=== PATIENT | male | born 1975 | race American Indian/Alaskan Native ===

== ENCOUNTER 2018-02-15 17:16 | Observation (INO) | payer SELFPAY ==
[2018-02-15 17:59] LABS: EOS # 0.1 K/uL (0.0-0.7); EOS % 2.9 % (0.0-4.0); HEMOGLOBIN 14.3 g/dL (12.0-18.0); LYMPH % 40.9 % (20.0-40.0); MEAN CELL VOLUME 80.9 fl (80.0-94.0); MEAN CORPUSCULAR HGB CONC 33.3 g/dL (33.0-37.0); MEAN PLATELET VOLUME 8.8 fl (7.2-11.7); MONO # 0.3 K/uL (0.0-0.8); MONO % 6.7 % (0.0-10.0); NEUT # 2.3 K/uL (1.8-7.0); NEUT % 48.5 % (50.0-75.0); RBC 5.31 Mil/uL (4.40-5.90); RED CELL DISTRIBUTION WIDTH 14.2 % (11.5-14.5); WHITE BLOOD COUNT 4.8 K/uL (4.8-10.8)
--- NOTE | 2018-02-15 18:04 | ED PDOC ---
HPI: Chest Pain Time Seen by Provider: 02/15/18 17:30 Chief Complaint (Nursing): Chest Pain Chief Complaint (Provider): Chest Pain History Per: Patient History/Exam Limitations: no limitations Onset/Duration Of Symptoms: Hrs (x1) Current Symptoms Are (Timing): Gone Now Additional History Per: EMS Additional Complaint(s): 42 year old male presents to the ED via EMS for evaluation after having right and then left sided non radiating chest pain one hour prior to arrival. Per EMS , patient was given aspirin and nitroglycerin. He states that he found it difficult to breath when the chest pain began, and was experiencing hot flashes. Currently, patient denies chest pain and shortness of breath, but does note that after the nitroglycerin, he developed a headache. PMD: none provided Past Medical History Reviewed: Historical Data, Nursing Documentation, Vital Signs Vital Signs: Last Vital Signs Temp 98.5 F 02/16/18 16:01 Pulse 84 02/16/18 16:01 Resp 20 02/16/18 16:01 BP 158/91 H 02/16/18 16:01 Pulse Ox 97 02/18/18 12:59 - Medical History PMH: HTN - Surgical History Surgical History: No Surg Hx - Family History Family History: States: CAD, Hypertension - Social History Current smoker - smoking cessation education provided: No Alcohol: None Drugs: Denies - Home Medications Home Medications: Ambulatory Orders Medication Instructions Recorded Aspirin [Adult Low Dose Aspirin EC] 81 mg PO DAILY #30 tablet. 02/16/18 Nitroglycerin 0.4 mg SL DAILY PRN #30 tab.subl 02/16/18 Olmesartan/Amlodipin/Hcthiazid 1 each PO DAILY #30 tablet 02/16/18 [Tribenzor 40-10-25 mg Tablet] Rosuvastatin Calcium 2.5 [Crestor] 5 mg PO DAILY #30 tab 02/16/18 - Allergies Allergies/Adverse Reactions: Allergies Allergy/AdvReac Type Severity Reaction Status Date / Time No Known Allergies Allergy Verified 02/15/18 17:20 YENNIFER Risk Score for UA/NSTEMI - YENNIFER Risk Score Age > 64: NO 3 or more CAD Risk Factors: NO Known CAD (Stenosis greater than 50%): NO Aspirin use in past 7 days: NO Severe Angina: YES EKG ST changes greater than 0.5mm: NO Positive Cardiac Marker: NO YENNIFER Score: 1 Risk %: 5% Wells Criteria for PE - Wells Criteria for Pulmonary Embolism Clinical Signs and Symptoms of DVT: No P.E is #1 Diagnosis, or Equally Likely: No Heart Rate >100: No Immobilization at least 3 days;Surgery previous 4 weeks: No Previous, objectively diagnosed PE or DVT: No Hemoptysis: No Malignancy w/treatment within 6 months, or palliative: No Total Score: 0 Review of Systems ROS Statement: Except As Marked, All Systems Reviewed And Found Negative Constitutional: Positive for: Other (hot flashes) Cardiovascular: Positive for: Chest Pain (right sided then left sided) Respiratory: Positive for: Shortness of Breath Physical Exam - Reviewed Nursing Documentation Reviewed: Yes Vital Signs Reviewed: Yes - Physical Exam Appears: Positive for: No Acute Distress Head Exam: Positive for: ATRAUMATIC, NORMOCEPHALIC Skin: Positive for: Normal Color, Warm, Dry Eye Exam: Positive for: Normal appearance, EOMI, PERRL ENT: Positive for: Normal ENT Inspection Neck: Positive for: Normal, Painless ROM, Supple Cardiovascular/Chest: Positive for: Regular Rate, Rhythm. Negative for: Murmur Respiratory: Positive for: Normal Breath Sounds. Negative for: Accessory Muscle Use, Wheezing, Respiratory Distress Gastrointestinal/Abdominal: Positive for: Normal Exam, Soft. Negative for: Tenderness Back: Positive for: Normal Inspection. Negative for: L CVA Tenderness, R CVA Tenderness, Vertebral Tenderness Extremity: Positive for: Normal ROM. Negative for: Pedal Edema, Calf Tenderness Neurologic/Psych: Positive for: Alert, Oriented (x3). Negative for: Motor/ Sensory Deficits - Laboratory Results Result Diagrams: 02/15/18 17:56 02/15/18 17:56 - ECG ECG Rhythm: Positive for: Normal QRS, Sinus Rhythm (at 94). Negative for: ST/T Changes O2 Sat by Pulse Oximetry: 97 (RA) Pulse Ox Interpretation: Normal Medical Decision Making Medical Decision Making: Initial Impression: chest pain Ddx: ACS Time: 17:44 Initial Plan: --EKG --BMP --Trop I --CBC with differential --CXR ASA given by EMS Scribe Attestation: Documented by Yas Mckeon, acting as a scribe for Fortino Fierro MD. Provider Scribe Attestation: All medical entries made by the Scribe were at my direction and personally dictated by me. I have reviewed the chart and agree that the record accurately reflects my personal performance of the history, physical exam, medical decision making, and the department course for this patient. I have also personally directed, reviewed, and agree with the discharge instructions and disposition. Disposition - Clinical Impression Clinical Impression: Chest pain - Patient ED Disposition Is Patient to be Admitted: Yes Discussed With : Nnamdi Abebe Doctor Will See Patient In The: ED Counseled Patient/Family Regarding: Studies Performed, Diagnosis - Disposition Disposition Time: 19:00 Condition: FAIR - Pt Status Changed To: Hospital Disposition Of: Observation - POA Present On Arrival: None
[2018-02-15 18:10] LABS: CALCIUM 9.4 mg/dL (8.4-10.2); GFR AFRICAN-AMERICAN > 60; GFR NON-AFRICAN AMERICAN > 60
[2018-02-15 18:16] LABS: BLOOD UREA NITROGEN 14 mg/dl (9-20)
--- NOTE | 2018-02-15 19:24 | CP.PCM.HP ---
History of Present Illness - History of Present Illness History of Present Illness: CC: CP This is a 42 yo male with hx htn presenting to the ED after having right and left sided non radiating chest pain 1 hour prior to arrival, associated with some shortness of breath. Currently he is asymptomatic in the ED. EKG revealed no acute changes. Labs including troponin are WNL. He is hemodynamically stable at this time. The patient is being placed on tele/obs to r/o ACS. Patient denies chest pain, shortness of breath, fevers, chills, nausea, vomiting, diarrhea, headache. All of the patient's and/or family's questions were answered at the bedside. Present on Admission - Present on Admission Any Indicators Present on Admission: No History of DVT/PE: No History of Uncontrolled Diabetes: No Review of Systems - Review of Systems Review of Systems: A 12 point review of systems was conducted and found to be neg other than in HPI Past Patient History - Infectious Disease Hx of Infectious Diseases: None - Past Medical History & Family History Past Medical History?: Yes Past Family History: Reviewed and not pertinent - Past Social History Alcohol: None Drugs: Denies - CARDIAC Hx Hypertension: Yes - PSYCHIATRIC Hx Substance Use: No Meds Allergies/Adverse Reactions: Allergies Allergy/AdvReac Type Severity Reaction Status Date / Time No Known Allergies Allergy Verified 02/15/18 17:20 Physical Exam - Additional Findings Additional findings: Physical exam: Constitutional- cooperative, awake, alert Head- NCAT, PERRL Eye- PERRL, EOMI ENT- normal exam, MMM. Neck- normal inspection, supple, no JVD Respiratory- CTAB, no wheezes rales rhonchi Cardiovascular- RRR, +S1, +S2 no MRG GI/Abdominal- normal bowel sounds, soft, no mass, no hsm Skin- warm, dry Extremities Exam- normal capillary refill, normal inspection Neurological Exam- alert, awake, oriented Psych- normal mood, normal affect Results - Vital Signs Recent Vital Signs: Last Vital Signs Temp 98.5 F 02/15/18 17:20 Pulse 88 02/15/18 17:43 Resp 18 02/15/18 17:43 BP 157/98 H 02/15/18 17:43 Pulse Ox 97 02/15/18 18:15 - Labs Result Diagrams: 02/15/18 17:56 02/15/18 17:56 Labs: Laboratory Results - last 24 hr 02/15/1818 02/15/18 17:21 17:56 17:56 WBC 4.8 RBC 5.31 Hgb 14.3 Hct 42.9 MCV 80.9 MCH 27.0 MCHC 33.3 RDW 14.2 Plt Count 216 MPV 8.8 Neut % (Auto) 48.5 L Lymph % (Auto) 40.9 H [place] % (Auto) 6.7 Eos % (Auto) 2.9 Baso % (Auto) 1.0 Neut # (Auto) 2.3 Lymph # (Auto) 2.0 [place] # (Auto) 0.3 Eos # (Auto) 0.1 Baso # (Auto) 0.0 Sodium 136 Potassium 4.3 Chloride 98 Carbon Dioxide 29 Anion Gap 13 BUN 14 Creatinine 1.0 Est GFR ( Amer) > 60 Est GFR (Non-Af Amer) > 60 POC Glucose (mg/dL) 95 Random Glucose 99 Calcium 9.4 Troponin I < 0.0120 Assessment & Plan - Assessment and Plan (Free Text) Plan: ASSESSMENT/PLAN This is a 42 yo male with hx htn presenting to the ED after having right and left sided non radiating chest pain 1 hour prior to arrival, associated with some shortness of breath. Being placed on tele/obs to r/o ACS 1) Chest pain, r/o ACS - Admit to tele/obs - Cycle troponins - EKG in AM - Nitrostat PRN - Lipid profile in AM - Consider cardiology consult if elevation in troponin or EKG changes 2) HTN - Start home meds - Controlled at this time 3) DVT prophylaxis - Heparin
[2018-02-15] MEDS ORDERED: guaiFENesin 200 mg/10 ml Syrup UD PO PRN (19:43)
[2018-02-15] MEDS ORDERED: Labetalol 5 mg/ml Inj 20ML IVP PRN (21:10)
--- NOTE | 2018-02-16 07:29 | RAD ---
PROCEDURE: CHEST RADIOGRAPH, 1 VIEW HISTORY: chest pain COMPARISON: None available. FINDINGS: LUNGS: Clear. PLEURA: No pneumothorax or pleural fluid seen. CARDIOVASCULAR: Normal. OSSEOUS STRUCTURES: No significant abnormalities. VISUALIZED UPPER ABDOMEN: Normal. OTHER FINDINGS: None. IMPRESSION: No acute cardiopulmonary disease appreciated.
[2018-02-16 08:15] VITALS: RESP 20
--- NOTE | 2018-02-16 08:45 | CARD ---
APPROVED REPORT EKG Measurement Heart [id number] ID [id number] <Conclusion> Normal sinus rhythm Incomplete right bundle branch block Nonspecific T wave abnormality Abnormal ECG
[2018-02-16] MEDS ORDERED: HCTHIAZID PO SCH (09:00)
[2018-02-16] MEDS ORDERED: OLMESARTAN PO SCH (09:00)
[2018-02-16] MEDS ORDERED: AMLODIPIN PO SCH (09:00)
[2018-02-16 09:15] LABS: HDL CHOLESTEROL 35 MG/DL (30-70)
[2018-02-16 09:25] LABS: LDL CHOLESTEROL 186 mg/dL (0-129)
--- NOTE | 2018-02-16 11:06 | CT ---
PROCEDURE: CT HEAD WITHOUT CONTRAST. HISTORY: possible seizure COMPARISON: None available. TECHNIQUE: Axial computed tomography images were obtained through the head/brain without intravenous contrast. Radiation dose: Total exam DLP = 841.47 mGy-cm. This CT exam was performed using one or more of the following dose reduction techniques: Automated exposure control, adjustment of the mA and/or kV according to patient size, and/or use of iterative reconstruction technique. FINDINGS: HEMORRHAGE: No intracranial hemorrhage. BRAIN: Normal sanchez-white matter differentiation and density are appreciated throughout the cerebrum and cerebellum with the brainstem appearing unremarkable as well. There is no mass effect. There is no suspicious extra-axial fluid collection and the midline brain anatomy appears diffusely unremarkable. VENTRICLES: Unremarkable. No hydrocephalus. CALVARIUM: Unremarkable. PARANASAL SINUSES: Unremarkable as visualized. No significant inflammatory changes. MASTOID AIR CELLS: Unremarkable as visualized. No inflammatory changes. OTHER FINDINGS: None. IMPRESSION: Unremarkable noncontrast head CT
[2018-02-16 16:02] VITALS: BP 158/91; PULSE 84; TEMP 98.5
--- NOTE | 2018-02-16 18:07 | CP.PCM.DIS ---
Provider - Provider Date of Admission: 02/15/18 19:03 Attending physician: Mitchell Abebe DO Time Spent in preparation of Discharge (in minutes): 45 Diagnosis - Discharge Diagnosis (1) Chest pain Status: Acute (2) Uncontrolled hypertension Status: Acute Hospital Course - Lab Results Lab Results: Most Recent Lab Values WBC 4.8 K/uL (4.8-10.8) 02/15/18 17:56 RBC 5.31 Mil/uL (4.40-5.90) 02/15/18 17:56 Hgb 14.3 g/dL (12.0-18.0) 02/15/18 17:56 Hct 42.9 % (35.0-51.0) 02/15/18 17:56 MCV 80.9 fl (80.0-94.0) 02/15/18 17:56 MCH 27.0 pg (27.0-31.0) 02/15/18 17:56 MCHC 33.3 g/dL (33.0-37.0) 02/15/18 17:56 RDW 14.2 % (11.5-14.5) 02/15/18 17:56 Plt Count 216 K/uL (130-400) 02/15/18 17:56 MPV 8.8 fl (7.2-11.7) 02/15/18 17:56 Neut % (Auto) 48.5 % (50.0-75.0) L 02/15/18 17:56 Lymph % (Auto) 40.9 % (20.0-40.0) H 02/15/18 17:56 [place] % (Auto) 6.7 % (0.0-10.0) 02/15/18 17:56 Eos % (Auto) 2.9 % (0.0-4.0) 02/15/18 17:56 Baso % (Auto) 1.0 % (0.0-2.0) 02/15/18 17:56 Neut # (Auto) 2.3 K/uL (1.8-7.0) 02/15/18 17:56 Lymph # (Auto) 2.0 K/uL (1.0-4.3) 02/15/18 17:56 [place] # (Auto) 0.3 K/uL (0.0-0.8) 02/15/18 17:56 Eos # (Auto) 0.1 K/uL (0.0-0.7) 02/15/18 17:56 Baso # (Auto) 0.0 K/uL (0.0-0.2) 02/15/18 17:56 Sodium 136 mmol/l (132-148) 02/15/18 17:56 Potassium 4.3 MMOL/L (3.6-5.0) 02/15/18 17:56 Chloride 98 mmol/L (98-107) 02/15/18 17:56 Carbon Dioxide 29 mmol/L (22-30) 02/15/18 17:56 Anion Gap 13 (10-20) 02/15/18 17:56 BUN 14 mg/dl (9-20) 02/15/18 17:56 Creatinine 1.0 mg/dl (0.8-1.5) 02/15/18 17:56 Est GFR ( Amer) > 60 02/15/18 17:56 Est GFR (Non-Af Amer) > 60 02/15/18 17:56 POC Glucose (mg/dL) 95 mg/dL (65-110) 02/15/18 17:21 Random Glucose 99 mg/dL (75-110) 02/15/18 17:56 Calcium 9.4 mg/dL (8.4-10.2) 02/15/18 17:56 Phosphorus 3.9 mg/dl (2.5-4.5) 02/16/18 16:36 Magnesium 2.4 MG/DL (1.6-2.3) H 02/16/18 16:36 Troponin I < 0.0120 ng/mL (0.00-0.120) 02/16/18 16:36 Triglycerides 177 mg/DL (0-149) H 02/16/18 08:30 Cholesterol 279 mg/dL (0-199) H 02/16/18 08:30 LDL Cholesterol Direct 186 mg/dL (0-129) H 02/16/18 08:30 HDL Cholesterol 35 MG/DL (30-70) 02/16/18 08:30 TSH 3rd Generation 1.36 mIU/ML (0.46-4.68) 02/16/18 08:30 - Hospital Course Hospital Course: This is a 42 yo male with hx htn presented to the ED after having right and left sided non radiating chest pain 1 hour prior to arrival, associated with some shortness of breath . Chest Pain resolved in the ED. He was observed in Telemetry . Troponin x 3 negative. Electrolytes normal. Cardiology consulted. 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 - Nitrostat PRN - CXR : negative - CT of head : neg ( patient and family denies saying he had seizures) 2) HTN, uncontrolled - Pt is on Tribenzor at home - dose increased to the 10 mg Amlodipine 3) DVT prophylaxis - Heparin Discharge Exam - Head Exam Head Exam: ATRAUMATIC, NORMAL INSPECTION, NORMOCEPHALIC - Eye Exam Eye Exam: EOMI, Normal appearance, PERRL Pupil Exam: NORMAL ACCOMODATION - ENT Exam ENT Exam: Mucous Membranes Moist, Normal External Ear Exam - Neck Exam Neck exam: Full Rom - Respiratory Exam Respiratory Exam: NORMAL BREATHING PATTERN. absent: Respiratory Distress - Cardiovascular Exam Cardiovascular Exam: REGULAR RHYTHM, +S1, +S2 - GI/Abdominal Exam GI & Abdominal Exam: Normal Bowel Sounds, Soft. absent: Tenderness - Extremities Exam Extremities exam: full ROM, normal capillary refill, pedal pulses present - Back Exam Back exam: FULL ROM. absent: CVA tenderness (L), CVA tenderness (R) - Neurological Exam Neurological exam: Alert, CN II-XII Intact, Normal Gait, Oriented x3, Reflexes Normal - Psychiatric Exam Psychiatric exam: Normal Affect, Normal Mood - Skin Skin Exam: Dry, Normal Color, Warm Discharge Plan - Discharge Medications Prescriptions: Aspirin [Adult Low Dose Aspirin EC] 81 mg PO DAILY #30 tablet. Nitroglycerin 0.4 mg SL DAILY PRN #30 tab.subl PRN Reason: chest pain Olmesartan/Amlodipin/Hcthiazid [Tribenzor 40-10-25 mg Tablet] 1 each PO DAILY # 30 tablet Rosuvastatin Calcium 2.5 [Crestor] 5 mg PO DAILY #30 tab - Follow Up Plan Condition: GOOD Disposition: HOME/ ROUTINE Instructions: Chest Pain (DC) Additional Instructions: ff up with PMD and Newswriter dimitri, further cardiac work up as outpt
--- NOTE | 2018-02-17 11:05 | CARD ---
APPROVED REPORT EXAM: Two-dimensional and M-mode echocardiogram with Doppler and color Doppler. Other Information Quality : AverageRhythm : INDICATION Chest Pain 2D DIMENSIONS IVSd1.33 (0.7-1.1cm)LVDd4.90 (3.9-5.9cm) PWd1.21 (0.7-1.1cm)IVSs1.71 (0.8-1.2cm) LVDs3.01 (2.5-4.0cm)FS (%) 38.7 % PWs1.59 (0.8-1.2cm) M-Mode DIMENSIONS Left Atrium (MM)3.95 (2.5-4.0cm)IVSd1.48 (0.7-1.1cm) Aortic Root2.95 (2.2-3.7cm)LVDd4.55 (4.0-5.6cm) Aortic Cusp Exc.2.38 (1.5-2.0cm)PWd1.35 (0.7-1.1cm) FS (%) 34 %LVDs2.99 (2.0-3.8cm) Mitral Valve MV E Ytqiuuky73.7cm/sMV DECEL [id number] A Pphujzgd87.6cm/s MV NYL48hbD/A ratio1.1MVA (PHT)3.66cm2 TDI Lateral E' Peak V12.71cm/sMedial E' Peak V11.41cm/sE/Lateral E'5.6 E/Medial E'6.2 Pulmonary Valve PV Peak Wwyvggpz11.8cm/s Tricuspid Valve TR Peak Tkyvkmmt091ht/sTR Peak Gr.13mmHg LEFT VENTRICLE The left ventricle is normal size. There is mild to moderate concentric left ventricular hypertrophy. Left ventricle systolic function is normal. The Ejection Fraction is 65-70%. There is normal LV segmental wall motion. The left ventricular diastolic function is normal. RIGHT VENTRICLE The right ventricle is normal size. There is normal right ventricular wall thickness. The right ventricular systolic function is normal. ATRIA The left atrium size is normal. The right atrium size is normal. AORTIC VALVE The aortic valve is normal in structure. No aortic regurgitation is present. There is no aortic valvular stenosis. MITRAL VALVE The mitral valve is normal in structure. There is no evidence of mitral valve prolapse. There is no mitral valve stenosis. There is no mitral valve regurgitation noted. TRICUSPID VALVE The tricuspid valve is normal in structure. There is no tricuspid valve regurgitation noted. PULMONIC VALVE The pulmonary valve is normal in structure. There is no pulmonic valvular regurgitation. GREAT VESSELS The aortic root is normal in size. Due to poor image quality, the IVC could not be assessed. PERICARDIAL EFFUSION The pericardium appears normal. <Conclusion> The left ventricle is normal size. There is mild to moderate concentric left ventricular hypertrophy. There is normal LV segmental wall motion. Left ventricle systolic function is normal. The Ejection Fraction is 65-70%. The left ventricular diastolic function is normal.
--- NOTE | 2018-02-17 11:21 | CARD ---
APPROVED REPORT EKG Measurement Heart [id number] MD [id number] <Conclusion> Normal sinus rhythm T wave abnormality, consider lateral ischemia Abnormal ECG
[2018-02-18 12:59] VITALS: O2SAT 97
== END 2018-02-16 18:30 | disposition home or self-care (01) ==
LOC: H.ER 17:16 → H.ERHOLD 19:03 → H.TEL 21:07
PROVIDERS: ADMIT Internal Medicine; ATTEND Internal Medicine
DX: R07.89 Other chest pain (principal); I10 Essential (primary) hypertension; Z82.49 Family history of ischemic heart disease and other diseases of the circulatory system; Z79.82 Long term (current) use of aspirin
CPT/HCPCS: 36415; 70450; 71045; 80048; 80061; 82948; 83735; 84100; 84443; 84484; 85025; 93005; 93306; 94660; 96372; 99285; G0378; J1644